=== PATIENT | female | born 1990 | race Caucasian/White ===

== ENCOUNTER 2018-08-06 17:32 | Emergency (ER) | payer BC ==
[~2018-08-06] VITALS: Ht 165.1 cm; Wt 97.3 kg
[2018-08-06 17:43] VITALS: BP 116/57; TEMP 99.8
[2018-08-06 18:32] LABS: COLLECTION METHOD CLEAN CATCH
[2018-08-06] MEDS ORDERED: VALTREX 50500 MG/TAB PO (18:38)
[2018-08-06] MEDS ORDERED: LUNESTA3 MG PO (18:38)
[2018-08-06 18:41] LABS: BASO % 0.3 % (0.0-2.0); EOS % 0.4 % (0-4.0); GRAN # 5.7 (1.4-6.5); GRAN % 80.1 % (42.2-75.2); HEMOGLOBIN 11.8 g/dl (12.5-16.0); LYMPH # 0.7 (1.2-3.4); LYMPH % 10.5 % (20.0-51.0); MEAN CELL VOLUME 82 fl (80.0-100.0); MEAN CORPUSCULAR HEMOGLOBIN 27 pg (27.0-31.0); MEAN CORPUSCULAR HGB CONC 32 g/dl (33.0-37.0); MEAN PLATELET VOLUME 10.7 fl (7.4-10.4); MONO # 0.6 (0.1-0.6); MONO % 8.4 % (1.7-9.3); PLATELET COUNT 174 K/mm3 (130-400); RED BLOOD COUNT 4.45 M/mm3 (4.10-5.30); REDCELL DISTRIBUTION WIDTH-CV 14.7 % (11.5-14.5)
[2018-08-06 18:42] LABS: HEMATOCRIT 36.6 % (37.0-47.0)
[2018-08-06 18:46] LABS: ALBUMIN 3.9 gm/dL (3.5-5.0); BILIRUBIN,TOTAL 0.8 mg/dL (0.0-1.0); CALCIUM 8.7 mg/dL (8.4-10.2); CREATININE, serum 0.78 mg/dL (0.52-1.25); POTASSIUM 3.3 mmol/L (3.4-5.0); TOTAL PROTEIN 6.9 gm/dL (6.4-8.2)
[2018-08-06 18:48] LABS: MUCOUS Present /lpf; PH 5 (5-8); URINE APPEARANCE Clear; URINE BACTERIA None Seen /hpf; URINE BILIRUBIN Negative (NEGATIVE); URINE BLOOD 1+ (NEGATIVE); URINE COLOR Amber; URINE GLUCOSE Negative (NEGATIVE); URINE KETONE Trace (NEGATIVE); URINE LEUKOCYTE ESTERASE 1+ (NEGATIVE); URINE NITRATE Negative (NEGATIVE); URINE PROTEIN(semi-quant) 1+ (NEGATIVE)
[2018-08-06 18:57] LABS: C-REACTIVE PROTEIN 13.9 mg/dL (0.0-0.9)
[2018-08-06] MEDS ORDERED: CIPRO 500MG TA500 MG PO (23:54)
[2018-08-06] MEDS ORDERED: NORCO 325 MG-51 TAB PO (23:54)
[2018-08-06] MEDS ORDERED: FLAGYL500 MG PO (23:54)
[2018-08-06] MEDS ORDERED: ZOFRAN ODT4 MG PO (23:54)
[2018-08-07 00:35] VITALS: PULSE 88
== END 2018-08-07 00:35 | disposition home or self-care (01) ==
LOC: COL.ER 17:32
PROVIDERS: Physician Assistant
DX: K52.9 Noninfective gastroenteritis and colitis, unspecified (principal); N83.201 Unspecified ovarian cyst, right side
CPT/HCPCS: J3010; J7030; Q9967